=== PATIENT | female | born 1955 | race Caucasian/White ===

== ENCOUNTER 2023-08-15 14:52 | Emergency (ER) | payer SELFPAY ==
[~2023-08-15] VITALS: Ht 157.5 cm; Wt 75.7 kg
[2023-08-15 15:12] VITALS: BP 148/87; PULSE 79; RESP 17; TEMP 97.4; O2SAT 98
[2023-08-15] MEDS ORDERED: KETOROLAC 60 MG/2 ML VIAL IM ONE (15:30)
[2023-08-15] MEDS ORDERED: CYCL-711 PO (16:05)
[2023-08-15] MEDS ORDERED: NAPR-54 PO (16:05)
[2023-08-15] MEDS ORDERED: LID5T TP (16:05)
[2023-08-15 16:51] VITALS: BP 135/82; PULSE 77; RESP 17; TEMP 97.5; O2SAT 98
== END 2023-08-15 16:52 | disposition home or self-care (01) ==
LOC: MED 14:52
DX: S63.591A Other specified sprain of right wrist, initial encounter (principal); M54.50 Low back pain, unspecified; Z79.899 Other long term (current) drug therapy; X58.XXXA Exposure to other specified factors, initial encounter; Y93.89 Activity, other specified; Y92.89 Other specified places as the place of occurrence of the external cause; Y99.8 Other external cause status
CPT/HCPCS: 72110; 73030; 73110; 96372; 99284; J1885